=== PATIENT | male | born 1940 | race Caucasian/White ===

== ENCOUNTER → 2018-08-07 | Outpatient (CLI) | payer OTHER ==
--- NOTE | 2018-08-07 16:43 | CARDNUC ---
[place] [address] CARDIAC NUCLEAR IMAGING REPORT Name: MILAGROS DAVIS Room: [facility]#: [id number] Admission: 08/07/18 Attend Phys: Donal Bermudez, Discharge: Date of : 44 Date of Service: 08/07/18 1643 Report #: [id number] THIS REPORT FOR: //name// APPROVED REPORT Study performed: 08/07/2018 08:15:00 Indication: Dyspnea, Congestive Heart Failure Patient Location: Out-Patient Stress Tech: Ayleen Farmer Stress Nurse: Iza Lima RN Ht: 6 ft 2 in Wt: 220 lbs BSA: 2.26 m2 BMI: 28.24 Medical History Medical History: CABG, CAD, Diabetes, HTN, Hyperlipidemia Medications: CARVEDILOL, ATORVASTATIN, LORSARTAN POTASSIUM Allergies: No known drug allergies Cardiac Risk Factors: Age, Hyperlipidemia, HTN, DM, SOB Previous Cardiac Procedures: CABG Pretest Chest Pain Characteristics: No chest pain Exercise History: Sedentary Physical Disabilities: Legs Meds Held (24 hrs): NONE HELD PER PT STATEMENT Resting Data Rest SPECT myocardial perfusion imaging was performed in supine position 30 minutes following the intravenous injection of 11.8 mCi of Tc-99m Sestamibi. Time of rest injection: 08:45 The images were gated to evaluate regional wall motion and calculate left ventricular ejection fraction. Administration Route: IV Administration Site: Right Arm Pharmacologic Stress Pharmacologic stress test was performed by injecting Regadenoson 0.4 mg IV push over 10-15 seconds immediately followed by the intravenous injection of 35.6 mCi of Tc-99m Sestamibi. Time of stress injection: 10:50 Administration Route: IV Administration Site: Right Arm Heart Rate at time of stress injection: [address] [place] [address] CARDIAC NUCLEAR IMAGING REPORT Name: MILAGROS DAVIS Room: [facility]#: [id number] Admission: 08/07/18 Attend Phys: Donal Bermudez, Discharge: Date of : 44 Date of Service: 08/07/18 1643 Report #: [id number] Gated Stress SPECT was performed 40 minutes after stress injection. The images were gated to evaluate regional wall motion and calculate left ventricular ejection fraction. Prone imaging was performed. Stress Test Details Stress Test: Pharmacologic stress testing performed using 0.4 mg of regadenoson per 5 mL given IV over 10 seconds. Reason for pharmacologic stress test: physical limitation. HR Max Heart Rate (APMHR): 144 bpm Resting HR: 71 bpm Target HR (85% APMHR): 122 bpm Max HR Achieved: 100 bpm % of APMHR: 69 Recovery HR: 82 bpm HR response to stress: Normal HR response to stress BP Resting BP: 151/100 mmHg Recovery BP: 153/99 mmHg BP response to stress: Normal blood pressure response to stress. ECG Resting ECG: Sinus Rhythm Stress ECG: Sinus Rhythm ST Change: None Recovery ECG: Sinus Rhythm Clinical Reason for Termination: Completed protocol Stress Symptoms: Dyspnea, Lightheaded Exercise duration: 0 min 0 sec Exercise capacity: 1.00 METs Nurse Comments WELL TOLERATED. SOA AND LIGHTHEADEDNESS RESOLVED QUICKLY WITH CAFFEINE. NO COMPLAINTS. Stress ECG Conclusion negative ecg Study Quality Study: Fair Artifact: Mild Increased [place] [address] CARDIAC NUCLEAR IMAGING REPORT Name: MILAGROS DAVIS Room: [facility]#: [id number] Admission: 08/07/18 Attend Phys: Donal Bermudez, Discharge: Date of : 44 Date of Service: 08/07/18 1643 Report #: [id number] Lung Uptake: Normal Study Data At rest, the left ventricular ejection fraction was 57%.. Post stress, the left ventricular ejection was 58%.. SSS: 8 SRS: 3 SDS: 5 TID = 1.06. Perfusion Review of SPECT images reveals a patchy, inhomongenous uptake of tracer in all segments, but no defined reversible defects. Prone images show some improvement. Images were reviewed using [employer]. Wall Motion normal all segments Paradoxical septal motion due to the postoperative state. Nuclear Conclusion ECG Findings: negative for ischemia Clinical Findings: negative for ischemia Nuclear Findings: negative for ischemia Exercise Capacity: not assessed Left Ventricular Function: normal Risk Study: low Negative perfusion nuclear stress test for ischemia <Conclusion> negative ecg <ELECTRONICALLY SIGNED> By: Donal Bermudez MD, FACC 08/07/18 1643 164 164 Donal Bermudez MD, FACC /INF
== END ==
LOC: M.NUC 07-28 13:03
DX: I11.0 Hypertensive heart disease with heart failure (principal); I50.22 Chronic systolic (congestive) heart failure; E11.9 Type 2 diabetes mellitus without complications; I25.10 Atherosclerotic heart disease of native coronary artery without angina pectoris; E78.5 Hyperlipidemia, unspecified; Z95.1 Presence of aortocoronary bypass graft